=== PATIENT | female | born 1980 | race American Indian/Alaskan Native ===

== ENCOUNTER 2016-10-16 23:47 | Emergency (ER) | payer MEDICAID ==
[2016-10-16 23:47] VITALS: BMI 28.3
[2016-10-16 23:53] VITALS: BP 160/103; PULSE 77; RESP 20; TEMP 98.2; O2SAT 99
--- NOTE | 2016-10-17 00:03 | ED PDOC ---
Lower Extremity Pain/Injury Time Seen by Provider: 10/17/16 00:02 Chief Complaint (Nursing): Lower Extremity Problem/Injury Chief Complaint (Provider): ANKLE PAIN History Per: Patient (35 Y/O FEMALE HERE WITH RIGHT ANKLE PAIN NOTED WHILE AT WORK TODAY AT 8:30PM. 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 DENIES ANY FALLS/ INJURY. WAS SEEN BY URGENT CARE FACILITY AND HAD ICE FREEZE PLACED. NOTE PERSISTENT PAIN. NO XRY EVALUATION DONE AT URGENT CARE.) Past Medical History Reviewed: Historical Data, Nursing Documentation, Vital Signs Vital Signs: Last Vital Signs Temp 98.2 F 10/16/16 23:49 Pulse 77 10/16/16 23:49 Resp 20 10/16/16 23:49 BP 160/103 H 10/16/16 23:49 Pulse Ox 99 10/16/16 23:49 - Medical History PMH: HTN - Surgical History Surgical History: Cholecystectomy, - Family History Family History: States: Unknown Family Hx, Diabetes, Hypertension - Home Medications Home Medications: Ambulatory Orders Medication Instructions Recorded Acetaminophen with Codeine 1 tab PO Q6H PRN #10 tab 05/19/15 [Tylenol with Codeine No. 3 300 mg-30 mg] Labetalol [Trandate] 2 tab PO BID 05/19/15 Vit#96/Ferrous Fum/FA 1 tab PO DAILY 05/19/15 [] Ibuprofen [Motrin] 600 mg PO Q8 PRN #21 tab 10/17/16 - Allergies Allergies/Adverse Reactions: Allergies Allergy/AdvReac Type Severity Reaction Status Date / Time No Known Allergies Allergy Unverified 11/22/13 17:39 Review of Systems ROS Statement: Except As Marked, All Systems Reviewed And Found Negative Physical Exam - Reviewed Nursing Documentation Reviewed: Yes Vital Signs Reviewed: Yes - Physical Exam Appears: Positive for: Well, Non-toxic, No Acute Distress Head Exam: Positive for: ATRAUMATIC, NORMAL INSPECTION, NORMOCEPHALIC Skin: Positive for: Normal Color, Warm, DRY Eye Exam: Positive for: EOMI, Normal appearance, PERRL ENT: Positive for: Normal ENT Inspection Neck: Positive for: Normal, Painless ROM Cardiovascular/Chest: Positive for: Regular Rate, Rhythm Respiratory: Positive for: CNT, Normal Breath Sounds Gastrointestinal/Abdominal: Positive for: Normal Exam, Bowel Sounds, Soft Back: Positive for: Normal Inspection Extremity: Positive for: Normal ROM Neurologic/Psych: Positive for: Alert, Oriented - ECG O2 Sat by Pulse Oximetry: 99 - Progress ED Course And Treament: ANKLE XRY: NO ACUTE FX PLACED IN AIR CAST AND GIVEN CRUTCHES ACETAMINOPHEN 975MG Disposition - Clinical Impression Clinical Impression: Ankle pain - Patient ED Disposition Is Patient to be Admitted: No - Disposition Referrals: Podiatry Clinic [Outside] Disposition: Routine/Home Disposition Time: 00:29 Condition: FAIR Prescriptions: Ibuprofen [Motrin] 600 mg PO Q8 PRN #21 tab PRN Reason: Pain, Moderate (4-7) Instructions: Ankle Sprain (ED) Forms: [facility] ED School/Work Excuse
--- NOTE | 2016-10-17 11:24 | RAD ---
PROCEDURE: Right Ankle Radiographs. HISTORY: ANKLE PAIN COMPARISON: None FINDINGS: BONES: Normal. No fracture. JOINTS: Minor degenerative changes seen along the medial aspect of the right tibiotalar articulation. . Ankle mortise maintained. Talar dome intact SOFT TISSUES: Normal. OTHER FINDINGS: None. IMPRESSION: No evidence of acute displaced fracture nor dislocation. If symptoms persist or occult fracture suspected clinically recommend repeat radiographs in 5-10 days as most fractures should become radiographically evident in this timeframe. Minor DJD as described
== END 2016-10-17 01:21 | disposition home or self-care (01) ==
LOC: H.ER 23:47
DX: M25.571 Pain in right ankle and joints of right foot (principal)

== ENCOUNTER 2017-09-02 16:16 | Emergency (ER) | payer MEDICAID, OTHER ==
[2017-09-02 16:17] VITALS: BMI 28.3
--- NOTE | 2017-09-02 17:02 | ED PDOC ---
HPI: Female Pain Time Seen by Provider: 09/02/17 16:48 Chief Complaint (Nursing): Abdominal Pain Chief Complaint (Provider): with abd pain History Per: Patient Additional Complaint(s): 36-year-old female approximately 9 weeks presents to emergency department with cramping abdominal pain that started earlier today. Patient denies vaginal bleeding or dysuria. Patient's last menses was July 05. She denies any fever or chills. Patient has had mild nausea with no vomiting. OB: Aj Acosta Past Medical History Reviewed: Historical Data, Nursing Documentation, Vital Signs Vital Signs: Last Vital Signs Temp 98.7 F 09/02/17 16:38 Pulse 77 09/02/17 16:38 Resp 16 09/02/17 16:38 BP 133/81 09/02/17 16:38 Pulse Ox 98 09/02/17 16:38 - Medical History PMH: HTN - Surgical History Surgical History: Cholecystectomy, Other surgeries: gastric sleeve - Family History Family History: States: Unknown Family Hx, Diabetes, Hypertension - Living Arrangements Living Arrangements: With Family - Social History Current smoker - smoking cessation education provided: No Ex-Smoker (has not smoked in the last 12 months): Yes (quit when she found out she was ) Alcohol: None Drugs: Denies - Home Medications Home Medications: Ambulatory Orders Medication Instructions Recorded Acetaminophen with Codeine 1 tab PO Q6H PRN #10 tab 05/19/15 [Tylenol with Codeine No. 3 300 mg-30 mg] Labetalol [Trandate] 2 tab PO BID 05/19/15 Vit#96/Ferrous Fum/FA 1 tab PO DAILY 05/19/15 [] Ibuprofen [Motrin] 600 mg PO Q8 PRN #21 tab 10/17/16 - Allergies Allergies/Adverse Reactions: Allergies Allergy/AdvReac Type Severity Reaction Status Date / Time No Known Allergies Allergy Verified 09/02/17 16:38 Review of Systems ROS Statement: Except As Marked, All Systems Reviewed And Found Negative Constitutional: Negative for: Fever, Chills, Weakness Cardiovascular: Negative for: Chest Pain Respiratory: Negative for: Cough Gastrointestinal: Positive for: Nausea, Abdominal Pain. Negative for: Vomiting , Diarrhea Genitourinary Female: Negative for: Dysuria, Frequency, Incontinence, Hematuria , Vaginal Discharge, Vaginal Bleeding Physical Exam - Reviewed Nursing Documentation Reviewed: Yes Vital Signs Reviewed: Yes - Physical Exam Appears: Positive for: Well, Non-toxic, No Acute Distress Skin: Positive for: Normal Color. Negative for: Rash Eye Exam: Positive for: Normal appearance Cardiovascular/Chest: Positive for: Regular Rate, Rhythm Respiratory: Positive for: Normal Breath Sounds Gastrointestinal/Abdominal: Positive for: Soft. Negative for: Tenderness, Distended, Guarding, Rebound Back: Negative for: L CVA Tenderness, R CVA Tenderness Extremity: Positive for: Normal ROM Neurologic/Psych: Positive for: Alert, Oriented - Laboratory Results Result Diagrams: 09/02/17 18:53 09/02/17 18:53 Urine POC: Positive Urine dip results: Negative for: Leukocyte Esterase, Blood, Nitrate, Ketones, Glucose, Bilirubin, Protein - ECG O2 Sat by Pulse Oximetry: 98 Pulse Ox Interpretation: Normal Medical Decision Making Medical Decision Makin36 year old female with abd pain Plan: Urine dip CBC CMP Beta TV OB US IVF IV zofran Disposition - Clinical Impression Clinical Impression: Abdominal pain during - Patient ED Disposition Is Patient to be Admitted: Transfer of Care - Disposition Disposition: Transfer of Care Disposition Time: 20:05 Condition: STABLE Forms: [employer] (Gabonese) Patient Signed Over To: Ursula Fang Handoff Comments: Signed out pending ultrasound report and final disposition Results - Lab Results Lab Results: 09/02/17 09/02/17 18:53 18:53 WBC 12.0 H RBC 3.87 Hgb 11.2 L Hct 33.9 L MCV 87.8 MCH 29.1 MCHC 33.1 RDW 18.6 H Plt Count 299 MPV 8.4 Neut % (Auto) 64.0 Lymph % (Auto) 27.3 [place] % (Auto) 6.8 Eos % (Auto) 1.1 Baso % (Auto) 0.8 Neut # (Auto) 7.7 H Lymph # (Auto) 3.3 [place] # (Auto) 0.8 Eos # (Auto) 0.1 Baso # (Auto) 0.1 Sodium 136 Potassium 4.5 Chloride 103 Carbon Dioxide 23 Anion Gap 15 BUN 17 Creatinine 0.7 Est GFR ( Amer) > 60 Est GFR (Non-Af Amer) > 60 Random Glucose 79 Calcium 8.8 Total Bilirubin 0.6 AST 20 ALT 27 Alkaline Phosphatase 56 Total Protein 7.2 Albumin 3.6 Globulin 3.6 Albumin/Globulin Ratio 1.0 Beta HCG, Quant 915802.00
[2017-09-02] MEDS ORDERED: Sodium Chloride 0.9% 1,000 ML IV STA (18:00)
[2017-09-02 19:05] LABS: BASO # 0.1 K/uL (0.0-0.2); BASO % 0.8 % (0.0-2.0); EOS # 0.1 K/uL (0.0-0.7); EOS % 1.1 % (0.0-4.0); HEMOGLOBIN 11.2 g/dL (12.0-16.0); LYMPH # 3.3 K/uL (1.0-4.3); LYMPH % 27.3 % (20.0-40.0); MEAN CELL VOLUME 87.8 fl (81.0-99.0); MEAN CORPUSCULAR HEMOGLOBIN 29.1 pg (27.0-31.0); MEAN CORPUSCULAR HGB CONC 33.1 g/dL (33.0-37.0); MEAN PLATELET VOLUME 8.4 fl (7.2-11.7); MONO # 0.8 K/uL (0.0-0.8); MONO % 6.8 % (0.0-10.0); NEUT # 7.7 K/uL (1.8-7.0); RBC 3.87 Mil/uL (3.80-5.20); RED CELL DISTRIBUTION WIDTH 18.6 % (11.5-14.5)
[2017-09-02 19:11] LABS: ALBUMIN 3.6 g/dL (3.5-5.0); ALT/SGPT 27 U/L (9-52); AST/SGOT 20 U/L (14-36); BLOOD UREA NITROGEN 17 mg/dl (7-17); CALCIUM 8.8 mg/dL (8.4-10.2); GFR AFRICAN-AMERICAN > 60; GFR NON-AFRICAN AMERICAN > 60
--- NOTE | 2017-09-02 20:42 | US ---
EXAM: US , Transvaginal CLINICAL HISTORY: 36 years old, female; Pain; complicated by abdominal or pelvic pain; Lower; First trimester; Gestational age or lmp: 07/05/2017; ; Additional info: with abd pain TECHNIQUE: Real-time transvaginal obstetrical ultrasound of the maternal pelvis and a first trimester with image documentation. Transvaginal imaging was used for better evaluation of the fetus and adnexa. COMPARISON: US - OB TRANSVAGINAL 2015-05-19 16:09 FINDINGS: Gestation: Single live intrauterine . Estimated gestational age based on crown-rump length is 8 weeks 6 days. Heart rate measured at 163 bpm. Uterus/cervix: No acute abnormality as visualized. No myometrial mass. Ovaries: Bilateral Doppler flow. No acute abnormality as visualized. Free fluid: Free fluid. IMPRESSION: Single live intrauterine . Estimated gestational age based on crown-rump length is 8 weeks 6 days. Heart rate measured at 163 bpm. Free fluid.
--- NOTE | 2017-09-02 20:59 | ED PDOC ---
- Laboratory Results Result Diagrams: 09/02/17 18:53 09/02/17 18:53 Urine POC: Positive - ECG O2 Sat by Pulse Oximetry: 98 - Progress ED Course And Treament: US IMPRESSION: Single live intrauterine . Estimated gestational age based on crown- rump length is 8 weeks 6 days. Heart rate measured at 163 bpm. Free fluid. Thank you for allowing us to participate in the care of your patient. Dictated and Authenticated by: Sho Roberts MD Disposition - Clinical Impression Clinical Impression: Abdominal pain during - POA Present On Arrival: None - Disposition Disposition: Routine/Home Disposition Time: 20:58 Condition: STABLE Prescriptions: Nitrofurantoin Macrocrystals [Macrobid] 100 mg PO BID #14 cap Ondansetron ODT [Zofran ODT] 4 mg PO Q8 PRN #10 odt PRN Reason: Nausea/Vomiting Instructions: Urinary Tract Infections in Adults, Threatened Miscarriage (DC) Forms: [facility] (Ukrainian)
[2017-09-02 21:09] VITALS: BP 152/99; PULSE 63; RESP 18; TEMP 99; O2SAT 100
== END 2017-09-02 21:10 | disposition home or self-care (01) ==
LOC: H.ER 16:16
DX: O23.40 Unspecified infection of urinary tract in pregnancy, unspecified trimester (principal); O20.0 Threatened abortion; O16.1 Unspecified maternal hypertension, first trimester; Z3A.09 9 weeks gestation of pregnancy
CPT/HCPCS: 76817; 80053; 81025; 84702; 85025; 87086; 96374; 99285; J2405; J7040

== ENCOUNTER 2017-10-28 17:32 | Emergency (ER) | payer OTHER ==
[2017-10-28 17:33] VITALS: BMI 28.3
[2017-10-28 18:38] VITALS: BP 129/79; PULSE 83; RESP 20; TEMP 98; O2SAT 98
--- NOTE | 2017-10-28 21:21 | ED PDOC ---
HPI: Abdomen Time Seen by Provider: 10/28/17 19:21 Chief Complaint (Nursing): Abdominal Pain Chief Complaint (Provider): Abdominal Pain History Per: Patient History/Exam Limitations: no limitations Onset/Duration Of Symptoms: Days (x3) Current Symptoms Are (Timing): Still Present Additional Complaint(s): 36 year old female, currently 17 weeks , presents to the emergency department with a complaint of constant, non-radiating lower abdominal pain and left lower leg cramping ongoing for 2 days. She denies any vomiting, diarrhea, chest pain, shortness of breath or leg swelling. A2. [employer] WORK[employer]: [employer] [facility] [employer] Past Medical History Reviewed: Historical Data, Nursing Documentation, Vital Signs Vital Signs: Last Vital Signs Temp 98 F 10/28/17 18:36 Pulse 83 10/28/17 18:36 Resp 20 10/28/17 18:36 BP 129/79 10/28/17 18:36 Pulse Ox 98 10/28/17 22:21 - Medical History PMH: HTN - Surgical History Surgical History: Cholecystectomy, - Family History Family History: States: Unknown Family Hx, Diabetes, Hypertension - Home Medications Home Medications: Ambulatory Orders Medication Instructions Recorded Acetaminophen with Codeine 1 tab PO Q6H PRN #10 tab 05/19/15 [Tylenol with Codeine No. 3 300 mg-30 mg] Labetalol [Trandate] 2 tab PO BID 05/19/15 Vit#96/Ferrous Fum/FA 1 tab PO DAILY 05/19/15 [] Ibuprofen [Motrin] 600 mg PO Q8 PRN #21 tab 10/17/16 Nitrofurantoin Macrocrystals 100 mg PO BID #14 cap 09/02/17 [Macrobid] Ondansetron ODT [Zofran ODT] 4 mg PO Q8 PRN #10 odt 09/02/17 - Allergies Allergies/Adverse Reactions: Allergies Allergy/AdvReac Type Severity Reaction Status Date / Time No Known Allergies Allergy Verified 09/02/17 16:38 Review of Systems ROS Statement: Except As Marked, All Systems Reviewed And Found Negative Cardiovascular: Negative for: Chest Pain Respiratory: Negative for: Shortness of Breath Gastrointestinal: Positive for: Abdominal Pain (lower). Negative for: Vomiting , Diarrhea Musculoskeletal: Positive for: Leg Pain (lower left). Negative for: Other (leg swelling bilaterally) Physical Exam - Reviewed Nursing Documentation Reviewed: Yes Vital Signs Reviewed: Yes - Physical Exam Appears: Positive for: No Acute Distress Head Exam: Positive for: ATRAUMATIC, NORMAL INSPECTION, NORMOCEPHALIC Skin: Positive for: Normal Color Eye Exam: Positive for: Normal appearance ENT: Positive for: Normal ENT Inspection Neck: Positive for: Normal Cardiovascular/Chest: Positive for: Regular Rate, Rhythm. Negative for: Murmur Respiratory: Positive for: Normal Breath Sounds. Negative for: Respiratory Distress Gastrointestinal/Abdominal: Positive for: Normal Exam, Soft, Other (gravid). Negative for: Tenderness Back: Positive for: Normal Inspection. Negative for: L CVA Tenderness, R CVA Tenderness Extremity: Positive for: Calf Tenderness (left mildly on palpation). Negative for: Pedal Edema (bilaterally) Neurologic/Psych: Positive for: Alert, Oriented. Negative for: Motor/Sensory Deficits - ECG O2 Sat by Pulse Oximetry: 98 (RA) Pulse Ox Interpretation: Normal Medical Decision Making Medical Decision Making: Initial Impression: Left lower leg pain; Lower abdominal pain; 17 weeks Initial Plan: * Urine dipstick * US duplex LE (left) * US OB --------- Time: 2212 --US LE (left) FINDINGS: Deep veins: Unremarkable. No DVT in the visualized common femoral, femoral, proximal deep femoral or popliteal veins. The veins demonstrate normal color flow, are normally compressible, with normal phasic flow and/or augmentation response. Superficial veins: Unremarkable. No thrombus in the visualized great saphenous vein. Soft tissues: No acute findings. No popliteal cyst. Other findings: None IMPRESSION: Negative for DVT --------- Time: 2217 --US OB preg FINDINGS: Cervix: The cervix measures 5.3 cm the cervical os is closed. A single fetus is seen in vertex presentation. The placenta is fundal and posterior. heart rate is 148 bpm. The amniotic fluid is normal in volume. The exam is negative for anatomic deformity. measurements: BPD 3.7 cm 17 weeks 2 days HC 14.3 cm 17 weeks 4 days A.C. 10.9 cm 16 weeks 5 days FL. 2.5 cm 17 weeks 6 days Ultrasound gestational age 17 weeks 3 days IRENE 04/04/2018 Clinical gestational age of 16 weeks 3 days IRENE 04/11/2018 IMPRESSION: 1. Single living intrauterine . 2. Gestational age 17 weeks 3 days IRENE 04/04/2018 3. Exam is otherwise unremarkable Scribe Attestation: Documented by Caitlin Rich, acting as a scribe for Denton Logan MD. Provider Scribe Attestation: All medical record entries made by the Scribe were at my direction and personally dictated by me. I have reviewed the chart and agree that the record accurately reflects my personal performance of the history, physical exam, medical decision making, and the department course for this patient. I have also personally directed, reviewed, and agree with the discharge instructions and disposition. Disposition - Clinical Impression Clinical Impression: Abdominal pain during , Leg cramps - Patient ED Disposition Is Patient to be Admitted: No Doctor Will See Patient In The: Office Counseled Patient/Family Regarding: Studies Performed, Diagnosis, Need For Followup - Disposition Referrals: [facility] [Outside] Disposition: Routine/Home Disposition Time: 22:27 Condition: GOOD Additional Instructions: Follow up with your PCP in 4-5 days. Instructions: Acute Pelvic Pain (DC), Muscle Spasms (DC)
--- NOTE | 2017-10-29 11:27 | US ---
PROCEDURE: OB Pelvic Ultrasound HISTORY: lower abd pain LMP: 07/05/2017 COMPARISON: No relevant prior imaging. FINDINGS: UTERUS: Placenta: Posterior. Presentation: Cephalic. BPD: 3.7 cm compatible with estimated gestational age of 17 weeks, 2 days. HC: 14.4 cm compatible with estimated gestational age of 17 weeks, 4 days. HC: 10.9 cm compatible with estimated gestational age of 16 weeks, 5 days. FL: 2.6 cm compatible with estimated gestational age of 17 weeks, 6 days. Heart rate: 148 bpm. age (Ultrasound estimated): 17 weeks, 3 days Jannet-gestational hemorrhage: None. Date of delivery (Ultrasound estimated) : 04/04/2018 CERVIX: Measures 5.4 cm. Long and closed. No cervical abnormality seen. FREE FLUID: None. OTHER FINDINGS: None. IMPRESSION: Single live intrauterine with average ultrasound age of 17 weeks, 3 days. heart rate 148 beats per minute. Cervix long and closed.
--- NOTE | 2017-10-29 11:29 | US ---
PROCEDURE: Left lower extremity venous duplex Doppler. HISTORY: left leg pain COMPARISON: None available. TECHNIQUE: Common femoral, superficial femoral, popliteal and posterior tibial veins were evaluated. Flow was assessed with color Doppler, compressibility, assessment of phasic flow and augmentation response. FINDINGS: COMMON FEMORAL VEIN: Unremarkable. SUPERFICIAL FEMORAL VEIN: Unremarkable. POPLITEAL VEIN: Unremarkable. POSTERIOR TIBIAL VEIN: Unremarkable. OTHER FINDINGS: None. IMPRESSION: No evidence of deep venous thrombosis in the left ower extremity.
== END 2017-10-28 22:41 | disposition home or self-care (01) ==
LOC: H.ER 17:32
DX: O26.892 Other specified pregnancy related conditions, second trimester (principal); O16.2 Unspecified maternal hypertension, second trimester; Z3A.17 17 weeks gestation of pregnancy; R25.2 Cramp and spasm

== ENCOUNTER 2018-03-24 13:17 | Inpatient (IN) | payer MEDICAID, OTHER ==
[2018-03-24 13:46] VITALS: BMI 29.0
[2018-03-24 16:05] LABS: SQUAMOUS EPITHIAL 6 /hpf (0-5); URINE BACTERIA RARE (<OCC); URINE BILIRUBIN NEGATIVE (NEGATIVE); URINE BLOOD NEGATIVE (NEGATIVE); URINE CLARITY CLOUDY (Clear); URINE COLOR YELLOW (YELLOW); URINE GLUCOSE (UA) NEG (Normal); URINE LEUKOCYTE ESTERASE SMALL Leu/uL (Negative); URINE PROTEIN NEGATIVE (NEGATIVE)
[2018-03-24 16:07] LABS: BASO # 0.1 K/uL (0.0-0.2); BASO % 0.6 % (0.0-2.0); EOS % 0.1 % (0.0-4.0); HEMOGLOBIN 10.4 g/dL (12.0-16.0); LYMPH # 2.2 K/uL (1.0-4.3); LYMPH % 22.6 % (20.0-40.0); MEAN CELL VOLUME 94.3 fl (81.0-99.0); MEAN CORPUSCULAR HGB CONC 33.9 g/dL (33.0-37.0); MEAN PLATELET VOLUME 9.7 fl (7.2-11.7); MONO # 0.5 K/uL (0.0-0.8); MONO % 5.4 % (0.0-10.0); NEUT # 6.8 K/uL (1.8-7.0); NEUT % 71.3 % (50.0-75.0); NRBC % 0.1 % (0.0-0.0); RBC 3.23 Mil/uL (3.80-5.20); RED CELL DISTRIBUTION WIDTH 13.1 % (11.5-14.5); WHITE BLOOD COUNT 9.6 K/uL (4.8-10.8)
[2018-03-24 16:13] LABS: ALB/GLOB RATIO 0.8 (1.0-2.1); ALBUMIN 3.2 g/dL (3.5-5.0); ALT/SGPT 18 U/L (9-52); AST/SGOT 18 U/L (14-36); BLOOD UREA NITROGEN 12 mg/dl (7-17); CALCIUM 8.7 mg/dL (8.4-10.2); GFR NON-AFRICAN AMERICAN > 60; URIC ACID 5.1 mg/Dl (2.2-7.5)
[2018-03-24] MEDS ORDERED: Lactated Ringer's 1,000 ML IV ONE (16:55)
[2018-03-24] MEDS ORDERED: Labetalol 5 mg/ml Inj 20ML IVP ONE (18:38)
--- NOTE | 2018-03-25 09:40 | OBADHP ---
Datetime: 03/24/2018 14:08 Admit Comment, IP Provider: 37 y/o @ 37.3wks w/IRENE of 04/11/2018 based on LMP of 07/05/2017 s ent from PND office, Dr. Pollard @ [facility], due to elevated BP"s of 181/98 _ 171/104. She endorses taking labetolol 200mg QD for elevated BP. She reports + FM, denies vb, ctx, loss of fluid, f/c, hea daches, visual changes, shortness of breath or chest pain. PNP: Dr. Pollard [facility] OBGYNhx: x 1 (2008) PMH: chronic HTN Meds: labetolol 200mg PO QD, PNV Allergies: NKA Surgx: [id number] Famhx: mom-HTN Sochx: quit cigarette smoking when she found out she was ROS: all points reviewed and neg unless otherwise mentioned in HPI VS: 131/92, 82 bpm, RR-16 spo2-100% Cardio: s1s2, RRR Lungs: cta b/l Abd: Gravid, BS+, nontender Ext: nonedematous, calves nontender A/P: 37 y/o @ 37.3wks w/IRENE of 04/11/2018 _ hx of chronic HTN, currently stable, not in ac tive labor, was sent due to elevated BP in office of 181/98 _ 171/104. -Further evaluation underway to R/O superimposed pre-eclampsia on chronic HTN given patient's elev ated BP in office. BP monitoring every 15 minutes with continous monitoring. -Ordered cbc, cmp, ldh, uric acid, 24hour urine. -FU labs and if wnl, patient can be discharged home and return 24hr urine to lab. Patient seen and evaluated with Dr. Granger -Maribel Fish, PGY-1 Extremities - PN: Normal Abdomen - PN: Normal Lungs - PN: Normal Heart - PN: Normal General - PN: Normal Gestation - Est Wks by US: 37.0 IP Hx Assessment: The History has been Reviewed and is Current Vital Signs Provider: Reviewed IP Chief Complaint: Other NICHD Variability Prov Fetus A: Moderate 6-25bpm NICHD Accel Fetus A IP Provider: [id number] FHR Category Provider Fetus A: Category I NICHD Decel Fetus A IP Provider: None DTRs - PN: Normal EGA AdmitDate IP: 37.3 IP Adm Impression: Term, intrauterine IP Admit Plan: Observation/Evaluation
[2018-03-25] MEDS ORDERED: Lactated Ringer's 1,000 ML IV SCH ×2 (15:30→20:45)
[2018-03-25] MEDS ORDERED: Labetalol 5mg/ml (4ml) IVP STA (17:51)
[2018-03-25] MEDS ORDERED: Labetalol 5mg/ml (4ml) ONE (17:54)
[2018-03-25] MEDS ORDERED: Lactated Ringer's 1,000 ML IV ONE (17:56)
[2018-03-25] MEDS ORDERED: Oxytocin 30 UNIT 30 UNITS/500 ML BAG IV ONE (17:58)
[2018-03-25] MEDS ORDERED: Morphine 5 mg/10 ml preservative-free Inj(Duramorph) ONE (17:59)
[2018-03-25] MEDS ORDERED: OXYTOCIN/0.9 % NS 20 UNIT/1,000 ML BAG IV SCH (18:00)
[2018-03-25] MEDS ORDERED: ceFAZolin IV 2 gm in Dextrose 2 GM/50 ML BAG IVPB ONE (18:04)
[2018-03-25] MEDS: Lactated Ringer's 1,000 ML IV ONE ×2 (18:10→19:00)
[2018-03-25] MEDS ORDERED: ceFAZolin IV 2 gm in Dextrose 2 GM/50 ML BAG IVPB SCH (18:15)
[2018-03-25 18:32] LABS: BASO % 0.5 % (0.0-2.0); EOS # 0.1 K/uL (0.0-0.7); EOS % 0.8 % (0.0-4.0); HEMOGLOBIN 9.5 g/dL (12.0-16.0); LYMPH # 2.2 K/uL (1.0-4.3); LYMPH % 28.1 % (20.0-40.0); MEAN CELL VOLUME 94.9 fl (81.0-99.0); MEAN CORPUSCULAR HEMOGLOBIN 31.7 pg (27.0-31.0); MEAN CORPUSCULAR HGB CONC 33.4 g/dL (33.0-37.0); MEAN PLATELET VOLUME 9.6 fl (7.2-11.7); MONO # 0.7 K/uL (0.0-0.8); MONO % 8.8 % (0.0-10.0); NEUT # 4.8 K/uL (1.8-7.0); NEUT % 61.8 % (50.0-75.0); NRBC % 0.1 % (0.0-0.0); RBC 3.01 Mil/uL (3.80-5.20); RED CELL DISTRIBUTION WIDTH 13.3 % (11.5-14.5); WHITE BLOOD COUNT 7.8 K/uL (4.8-10.8)
[2018-03-25] MEDS ORDERED: Oxycodone/Acetaminophen 5/325 mg Tab PO PRN ×2 (20:43)
[2018-03-25] MEDS ORDERED: Simethicone 80 mg Chewtab PO SCH (22:00)
[2018-03-25] MEDS ORDERED: Labetalol 5mg/ml (4ml) IVP ONE (22:49)
[2018-03-26] MEDS: Lactated Ringer's 1,000 ML IV SCH ×2 (03:58→17:08)
[2018-03-26 07:53] LABS: HEMOGLOBIN 9.6 g/dL (12.0-16.0); MEAN CORPUSCULAR HEMOGLOBIN 31.4 pg (27.0-31.0); MEAN CORPUSCULAR HGB CONC 33.4 g/dL (33.0-37.0); RBC 3.06 Mil/uL (3.80-5.20); RED CELL DISTRIBUTION WIDTH 13.2 % (11.5-14.5); WHITE BLOOD COUNT 12.3 K/uL (4.8-10.8)
[2018-03-26] MEDS ORDERED: Multivitamin With Minerals Tab PO SCH (09:00)
[2018-03-26] MEDS: Simethicone 80 mg Chewtab PO SCH ×2 (17:11→21:19)
[2018-03-26] MEDS: Oxycodone/Acetaminophen 5/325 mg Tab PO PRN (22:28)
[2018-03-27] MEDS: Simethicone 80 mg Chewtab PO SCH ×4 (05:22→22:01)
[2018-03-27] MEDS: Oxycodone/Acetaminophen 5/325 mg Tab PO PRN ×3 (08:05→22:23)
[2018-03-27] MEDS ORDERED: Prenatal Multivit/Folic Acid/Iron Tab PO SCH (09:00)
--- NOTE | 2018-03-27 10:07 | OBPPN ---
Datetime: 03/27/2018 08:41 PP Pain Prov: Within normal limits PP Nausea Prov: Denies PP Flatus Prov: Yes PP BM Prov: Yes PP Breasts Prov: Not Done PP Heart Prov: Normal PP Lungs Prov: Normal PP Abdomen/Uterus Prov: Abnormal PP Lochia Prov: Normal PP Vulva/Perineum Prov: Not Done PP CVA Tenderness Prov: Normal PP Extremities Prov: Normal PP C/S Incision Prov: Normal PP Progress Prov: Normal PP Impression Prov: Induced Hypertension PP Plan Prov: Continue present management PP Impression Other Prov: Chronic HTN With preeclampsia PP Progress Note Prov: POD2 S: 37yo admitted for chronic HTN + Preeclampsia s/p C section on 03/25/18 @ 20:00. Patient seen and examined at bedside. Pt reports mild pelvic pains improved with pain medication. Bottle fee ding without difficulty. Appeitite improved, eating regular diet w/o nausea, vomiting. Passing flatus and small BM. Ambulating well w/o difficulties. Rea removed. Denies fever/chills, headache, CP/SOB , dizziness, extremity swelling or calf pain. O: BP 152/86 @ 4:21am PE GEN: Sitting comfortably in bed, NAD HEENT: NCAT LUNGS: CTA, no wheezing, rhonchi, or rales CVS: RRR, S1, S2, no m/r/g ABD: Nondistended, Mild tenderness along incision line, +BS, firm fundus @ umbilical level. Dressi ng wet/intact w/o any discharge or pus. + sweat in the area. EXT: No calf tenderness, pedal edema A/P: 37yo s/p C section on 03/25/18 @ 20:00. Doing well POD2 - Labetalol 200mg BID for BP control consider MG if BP isnt controlled - Encouraged pt wants to bottle feed - Continue regular diet - OOB with caution if MG not started - Continue vitamin - Percocet 5/325 mg 1-2 tablets po q 6 hrs if severe pain - Simethicone 80mg Q6h PRN for gas - Colace 100mg BID PO - Clean area/apply new steri-strips - Discharge to home today 03/28/18 F/U in 1 week for and wound check appt and 4-6 weeks post- appt at [facility] Case reviewed and discussed with Attending Alec Fang, PGY1 Vital Signs Provider PP: Reviewed Vital Signs Provider Details PP: BP 152/86 Datetime: 03/26/2018 07:05 PP Comments Phys Exam Prov: Wearing SCDS IP PP Procedures: Tubal Ligation
--- NOTE | 2018-03-27 13:03 | OBPPN ---
Datetime: 03/27/2018 08:41 PP Progress Note Prov: POD2 S: 37yo admitted for chronic HTN + Preeclampsia s/p C section on 03/25/18 @ 20:00. Patient seen and examined at bedside. Pt reports mild pelvic pains improved with pain medication. Bottle fee ding without difficulty. Appeitite improved, eating regular diet w/o nausea, vomiting. Passing flatus and small BM. Ambulating well w/o difficulties. Rea removed. Denies fever/chills, headache, CP/SOB , dizziness, extremity swelling or calf pain. O: BP 152/86 @ 4:21am PE GEN: Sitting comfortably in bed, NAD HEENT: NCAT LUNGS: CTA, no wheezing, rhonchi, or rales CVS: RRR, S1, S2, no m/r/g ABD: Nondistended, Mild tenderness along incision line, +BS, firm fundus @ umbilical level. Dressi ng wet/intact w/o any discharge or pus. + sweat in the area. EXT: No calf tenderness, pedal edema A/P: 37yo s/p C section on 03/25/18 @ 20:00. Doing well POD2 - Labetalol 200mg BID for BP control consider MG if BP isnt controlled - Encouraged pt wants to bottle feed - Continue regular diet - OOB with caution if MG not started - Continue vitamin - Percocet 5/325 mg 1-2 tablets po q 6 hrs if severe pain - Simethicone 80mg Q6h PRN for gas - Colace 100mg BID PO - Clean area/apply new steri-strips - Discharge to home today 03/28/18 F/U in 1 week for and wound check appt and 4-6 weeks post- appt at [facility] Case reviewed and discussed with Attending Alec Fang, PGY1 The patient was seen with the resident I agree with the note
--- NOTE | 2018-03-27 13:03 | OBDS ---
DELIVERY PERSONNEL Delivery Doctor: Amadou Nunez MD (Annotations: Data stored by [facility] on behalf of user) Change Over: Yuri Mcfarlane RN Anesthesiologist: David Moses MD Resident: Dr. Bonilla Sandoval MATERNAL INFORMATION Delivery Anesthesia: Spinal Medications in Delivery: Pitocin Estimated Blood Loss (ml): 800 Placenta Cultured: No Maternal Complications: Other Other Maternal Complications: Chronic Hypertension Provider Comments: See operative report LABOR SUMMARY EDC: 04/11/2018 00:00 No. Babies in Womb: 1 Attempted: No Labor Anesthesia: Spinal LABOR INFORMATION Reason for Induction: Not Applicable Oxytocin: N/A Group B Beta Strep: Negative Antibiotics # of Doses: 1 Antibiotics Time of Last Dose: 1934 Steroids Given: None Reason Steroids Not Administered: Not Applicable MEMBRANES Membranes Rupture Method: Artificial Rupture of Membranes: 03/25/2018 19:59 Length of Rupture (hrs): 0.02 Amniotic Fluid Color: Clear Amniotic Fluid Amount: Moderate STAGES OF LABOR Stage 3 hrs: 0 Stage 3 min: 1 CSECTION DELIVERY Primary Indication: Other Other Primary Indication: Chronic Hypertension Secondary Indication: Repeat Elective CSection Urgency: Non Elective CSection Incidence: Repeat CSection Incision: Lower Uterine Transverse Other Sterilization Procedure: Bilateral Tubal Ligation BABY A INFORMATION Infant Delivery Date/Time: 03/25/2018 20:00 Method of Delivery: Born in Route : No : N/A Forceps: N/A Vacuum Extraction: N/A Shoulder Dystocia : No SHOULDER DYSTOCIA BABY A Infant Delivery Date/Time: 03/25/2018 20:00 PRESENTATION/POSITION BABY A Presentation: Cephalic Cephalic Presentation: Vertex Breech Presentation: N/A PLACENTA INFORMATION BABY A Placenta Delivery Time : 03/25/2018 20:01 Placenta Method of Delivery: Manual Removal Placenta Status: Delivered SCORES BABY A Heart Rate 1 min: >100 bpm Resp Effort 1 min: Good Cry Reflex Irritability 1 min: Cough or Sneeze or Pulls Away Muscle Tone 1 min: Active Motion Color 1 min: Body [place], Extremities Blue Resuscitation Effort 1 min: Tactile Stimulation SCORE 1 MIN: 9 Heart Rate 5 min: >100 bpm Resp Effort 5 min: Good Cry Reflex Irritability 5 min: Cough or Sneeze or Pulls Away Muscle Tone 5 min: Active Motion Color 5 min: Body [place], Extremities Blue Resuscitation Effort 5 min: N/A SCORE 5 MIN: 9 INFANT INFORMATION BABY A Gestational Age at Delivery: 37.4 Gestational Status: Outcome : Liveborn Infant Condition : Stable Sex: Female IDENTIFICATION/MEDS BABY A ID Band Number: [id number] ID Band Location: Left Leg; Left Arm WEIGHT/LENGTH BABY A Birthweight (gms): 2500 Infant Weight (lb): 5 Infant Weight (oz): 8 CORD INFORMATION BABY A No. Cord Vessels: 3 Nuchal Cord : N/A Cord Blood Taken: Yes Suction: Mouth; Nose ASSESSMENT BABY A Infant Complications: None Physical Findings at Delivery: Within Normal Limits Infant Respirations: Appears Normal Live Ammunition Inspector/ALS Called : No Infant Care By: Dr. Leung / Tung RN Transferred To: Remains with Mother
[2018-03-27] MEDS ORDERED: Labetalol 5mg/ml (4ml) IVP STA (17:50)
[2018-03-27] MEDS ORDERED: Lactated Ringer's 1,000 ML IV SCH (19:00)
[2018-03-28] MEDS: Simethicone 80 mg Chewtab PO SCH ×4 (07:08→22:41)
--- NOTE | 2018-03-28 07:18 | OP ---
PROCEDURE DATE: 03/25/2018 PREOPERATIVE DIAGNOSES: Intrauterine at 37+ weeks, history of previous delivery, uncontrolled hypertension. POSTOPERATIVE DIAGNOSES: Intrauterine of at 37+ weeks, history of previous delivery, uncontrolled hypertension. OPERATION PERFORMED: Repeat low flap transverse section via Pfannenstiel skin incision with bilateral tubal ligation. SURGEON: Portillo Nunez MD CLOUD ENGAGEMENT PARTNER: Dr. Joanie Aguila. ANESTHESIA TYPE: Spinal. ANESTHESIA ADMINISTERED BY: Benoit Moses MD ESTIMATED BLOOD LOSS: 800 mL. URINE OUTPUT: Rea catheter put out approximately 100 mL of clear urine. INTRAVENOUS FLUID INTAKE: The patient received 1100 mL of D5 LR intraoperatively. OPERATIVE FINDINGS: Baby girl, vertex presentation, Apgars 9 and 9, weighing 2500 g. Normal uterus, tubes, and ovaries were identified. DESCRIPTION OF PROCEDURE: After informed consent was obtained, the patient was taken to the operating room, where she was given spinal anesthesia. The patient was then prepped and draped in a normal sterile fashion with a leftward tilt. A Pfannenstiel skin incision was then made with a scalpel and carried down the underlying layer of fascia. The fascia was nicked in the midline. The fascial incision was then extended laterally with curved Molina scissors. The superior aspect of the fascial incision was then grasped with Sarah clamps, elevated up, and the rectus muscles were dissected off using both sharp and blunt dissection. Attention was then turned to the inferior aspect of the fascial incision, which in a similar fashion, was grasped with Sarah clamps, elevated up, and the rectus muscles were dissected off using both sharp and blunt dissection. The rectus muscles were then in the midline. The peritoneum was identified and entered sharply with the Metzenbaum scissors. The peritoneal incision was then extended superiorly and inferiorly with good visualization of the bladder. The bladder blade was then inserted. The vesicouterine peritoneum was identified and entered sharply with the Metzenbaum scissors. The incision was then extended laterally. A bladder flap was created digitally. The bladder blade was then re-adjusted and a low transverse incision was made with the scalpel. The incision was then extended laterally. The 's head was then delivered atraumatically. The nose and mouth were suctioned with DeLee suction trap. The cord was clamped and cut. The was handed off to awaiting pediatricians. The placenta was then removed manually. The uterus was cleared of all clots and debris. The uterine incision was then repaired with 0 Vicryl in a running locked fashion. The second layer of the same suture was used to obtain excellent hemostasis. Attention was then turned to the fallopian tubes, where the right tube was grasped with Aydee, elevated up and a knuckle of tube was created. It was suture ligated. The tube was then transected with Metzenbaum scissors. A similar procedure was performed on the left. Specimens were sent to Pathology. The abdomen was then copiously irrigated. The irrigant was removed with the suction device. The uterus was returned to the abdomen. Both tubal stumps were examined and the uterine incision was now noted to be hemostatic. The peritoneum was then closed with 2-0 Vicryl in a running fashion. The muscles were reapproximated with 0 Vicryl in an interrupted fashion and the skin was closed with 4-0 on a Philip needle. All sponge, lap, needle and instrument counts were correct x2. The patient was taken to the recovery room in awake and stable condition. Portillo Nunez MD
[2018-03-28] MEDS: Oxycodone/Acetaminophen 5/325 mg Tab PO PRN ×2 (09:54→22:41)
--- NOTE | 2018-03-28 15:11 | OBPPN ---
Datetime: 03/28/2018 08:42 PP Pain Prov: Within normal limits PP Nausea Prov: Denies PP Flatus Prov: Yes PP BM Prov: Yes PP Breasts Prov: Not Done PP Heart Prov: Normal PP Lungs Prov: Normal PP Abdomen/Uterus Prov: Normal PP Lochia Prov: Normal PP Vulva/Perineum Prov: Normal PP CVA Tenderness Prov: Normal PP Extremities Prov: Normal PP Impression Prov: Normal progression; Induced Hypertension PP Progress Note Prov: POD3 S: 37yo admitted for chronic HTN + Preeclampsia s/p C section on 03/25/18 @ 20:00. Patient seen and examined at bedside. Pt state pain is controlled with medication. She is only bottle feedin g for now.Have good appetite and eating regular food. Pt denies N/v diarrhea.nies fever/chills, heada emily, CP/SOB, dizziness, extremity swelling or calf pain. O: BP 155/90 @ 4:00am PE GEN: Sitting comfortably in bed, NAD HEENT: NCAT LUNGS: CTA, no wheezing, rhonchi, or rales CVS: RRR, S1, S2, no m/r/g ABD: Nondistended, Mild tenderness along incision line, +BS, firm fundus @ umbilical level. wound intact clean no stables noted EXT: No calf tenderness, pedal edema A/P: 37yo s/p C section on 03/25/18 @ 20:00. Doing well POD2 - Labetalol 200mg BID for BP control consider MG if BP isnt controlled - Encouraged pt wants to bottle feed - Continue regular diet - OOB with caution if MG not started - Continue vitamin - Percocet 5/325 mg 1-2 tablets po q 6 hrs if severe pain - Simethicone 80mg Q6h PRN for gas - Colace 100mg BID PO - Discharge to home today after bp is <140/90 F/u 1-2 days for visit and post visit in 4-6 wk in [facility] F/U in 1 week for and wound check appt and 4-6 weeks post- appt at [facility] Ludwin Ramires, PGY1 Alec Fang, PGY1 Addendum by Dr. Medrano: I have evaluated the patient independently and I agree with the above. Regine ent was found to have elevated BP this AM 160/111 - denies GORE, blurry vision, N/V. 2 doses of Labetal ol 100mg PO were given and after 1pm BP was 140s/80s. Will continue Labetalol 300mg PO Q8 and will re asses tomorrow for discharge Vital Signs Provider PP: Reviewed Vital Signs Provider Details PP: BP still uncontrolled 155/90 with labetalol 200mg
[2018-03-28] MEDS ORDERED: Oxycodone/Acetaminophen 5/325 mg Tab PO PRN (22:09)
[2018-03-29] MEDS: Simethicone 80 mg Chewtab PO SCH ×3 (05:07→15:58)
[2018-03-29] MEDS: Oxycodone/Acetaminophen 5/325 mg Tab PO PRN (07:56)
--- NOTE | 2018-03-29 11:54 | OBPPN ---
Datetime: 03/29/2018 05:48 PP Pain Prov: Within normal limits PP Nausea Prov: Denies PP Flatus Prov: Yes PP Heart Prov: Normal PP Lungs Prov: Normal PP Abdomen/Uterus Prov: Normal PP Lochia Prov: Normal PP Extremities Prov: Normal PP Comments Phys Exam Prov: Se progress note PP Progress Note Prov: S: 37 y/o with chronic HTN + Preeclampsia s/p C section on 03/25/18 @ 20:00, POD4. Patient seen and examined at bedside this morning. Pt c/o pelvic pain mainly when she w alks and is controlled with medication, she is only bottle feeding baby. Patient reports tolerating r egular diet without nausea or vomiting, patient reports that her lochia is less than menses in volume . Voiding well with no blood noted in urine, + flatus. Patient denies fever/chills, headache, blurry vision, abdominal pain, CP/SOB, dizziness, or calf pain. O: VS 1AM BP134/81 HR 64 RR 18. VS 4AM BP 161/86 GEN: Sitting comfortably in bed, NAD HEENT: NCAT LUNGS: CTA, no wheezing CVS: RRR, S1, S2 present normal, no murmurs. ABD: No distended, BS +, mild tenderness along incision line, firm fundus at umbilical level, woun d clean and intact EXT: Sylvain's negative A/P: 37 y/o with h/o chronic HTN and preeclampsia, s/p C section on 03/25/18 @ 20:00, today on her POD4 patient is asymptomatic but continues with elevated BP. - Regular diet - Labetalol 400mg Q8h for BP control. - Encouraged - OOB with assistance - Continue vitamin - Percocet 5/325 mg 1-2 tablets PO q 6hrs if severe pain - Simethicone 80mg Q6h PRN for gas - Colace 100mg BID PO - Discharge to home today after bp is <140/90 F/u 1-2 days for visit and visit in 4-6 wk in [facility]. F/U in 1 week for and wound check appt and 4-6 weeks post- appt at [place] Case discussed with attending Jc Vidales MD PGY1 OB Hospitalist on-call: Pt seen on rounds this morning. BPs rev'd. Cardiology consultation for B P control. MIA Vital Signs Provider PP: Reviewed Vital Signs Provider Details PP: Notable for elevated BP
[2018-03-29] MEDS ORDERED: NIFEdipine 30 mg ER Tab PO SCH (12:45)
[2018-03-29 13:38] VITALS: BP 159/89
[2018-03-30 00:10] VITALS: PULSE 75; RESP 18; TEMP 98.6; O2SAT 98
--- NOTE | 2018-03-30 02:26 | CON ---
DATE: 03/29/2018 REASON FOR CONSULTATION: Hypertension. HISTORY OF PRESENT ILLNESS: The patient is a 37-year-old female who was diagnosed of hypertension since her last in 2008, and the patient was treated with labetalol and four days ago she had a section at the obstetric floor in [facility] and was noted to be hypertensive. The patient denies any chest pain, shortness of breath or leg swelling and no known prior cardiac history. SOCIAL HISTORY: The patient is a smoker but she did not smoke during this . MEDICATIONS: Procardia XL 30 mg once a day, labetalol 400 mg p.o. every eight hours. PHYSICAL EXAMINATION: GENERAL: The patient is a middle-aged female who does not appear to be in any distress. VITAL SIGNS: Blood pressure 159/89, heart rate 89. HEENT: Normocephalic. CHEST: Clear. HEART: S1 and S2, regular. EXTREMITIES: No edema. LABORATORY DATA: EKG reveals normal sinus rhythm at the rate of 61. Echocardiographic study, I did review the study which revealed normal ejection fraction with mild pulmonary hypertension. Laboratories on 03/26/2018: Hemoglobin and hematocrit were 9.6 and 28.8, white count 12.3, platelet count 204,000. SMA 7, 03/24/2018: Sodium 136, potassium 4, chloride 109, CO2 is 22, glucose 75, BUN 12, creatinine 0.8. ASSESSMENT: 1. Uncontrolled hypertension. 2. 2, para 2. The patient is not nursing her baby at this time. RECOMMENDATIONS: Continue Trandate 400 mg p.o. every eight hours, Procardia XL at 30 mg once a day. I will administer one dose of 2 mg of IV Lasix and start hydrochlorothiazide 12.5 mg orally daily. The patient can be discharged after optimizing her blood pressure control, to be followed by the medical clinic at [facility]. Kevin Chen MD
--- NOTE | 2018-03-30 06:57 | CARD ---
APPROVED REPORT Date of service: 03/29/2018 EXAM: Two-dimensional and M-mode echocardiogram with Doppler and color Doppler. Other Information Quality : ExcellentRhythm : NSR INDICATION Hypertension/HCVD 2D DIMENSIONS IVSd1.15 (0.7-1.1cm)LVDd4.65 (3.9-5.9cm) LVOT Diameter1.83 (1.8-2.4cm)PWd1.13 (0.7-1.1cm) IVSs1.80 (0.8-1.2cm)LVDs2.59 (2.5-4.0cm) FS (%) 44.3 %PWs1.82 (0.8-1.2cm) M-Mode DIMENSIONS Left Atrium (MM)4.01 (2.5-4.0cm)IVSd1.26 (0.7-1.1cm) Aortic Root2.83 (2.2-3.7cm)LVDd4.66 (4.0-5.6cm) Aortic Cusp Exc.2.08 (1.5-2.0cm)PWd1.31 (0.7-1.1cm) IVSs1.65 cmFS (%) 41 % LVDs2.73 (2.0-3.8cm)PWs1.80 cm Aortic Valve AoV Peak Heomoiyo871.9cm/sAoV VTI33.0cmAO Peak GR.10mmHg LVOT Peak Vnpslips531.6cm/sLVOT VTI24.83cmAO Mean GR.5mmHg NASRIN (VMAX)0.22zk6UGO (VTI)1.03cm2 Mitral Valve MV E Vepamowc918.2cm/sMV DECEL [id number] A Ocjkgwxq17.6cm/s MV BTF40uaW/A ratio1.7MVA (PHT)3.27cm2 TDI Lateral E' Peak V11.90cm/sMedial E' Peak V12.71cm/sE/Lateral E'10.2 E/Medial E'9.5 Pulmonary Valve PV Peak Rlznfpvu110.5cm/s Tricuspid Valve TR Peak Uakdclnw077yx/sRAP LIWPLGWW44iyRvJO Peak Gr.25mmHg [id number] LEFT VENTRICLE The left ventricle is normal size. There is borderline concentric left ventricular hypertrophy. The left ventricular systolic function is normal. The estimated ejection fraction is 60-65% No regional wall motion abnormalities noted.. The left ventricular diastolic function is normal. No left ventricle thrombus noted on this study. There is no ventricular septal defect visualized. There is no left ventricular aneurysm. There is no mass noted in the left ventricle. RIGHT VENTRICLE The right ventricle is normal size. There is normal right ventricular wall thickness. The right ventricular systolic function is normal. ATRIA The left atrium size is normal. The right atrium size is normal. The interatrial septum is intact with no evidence for an atrial septal defect. AORTIC VALVE The aortic valve is normal in structure. No aortic regurgitation is present. There is no aortic valvular stenosis. There is no aortic valvular vegetation. MITRAL VALVE The mitral valve is normal in structure. There is no evidence of mitral valve prolapse. There is no mitral valve stenosis. There is trace mitral valve regurgitation noted. TRICUSPID VALVE The tricuspid valve is normal in structure. There is mild tricuspid valve regurgitation noted. RVSP is calculated at 30 mm Hg. There is no tricuspid valve prolapse or vegetation. There is no tricuspid valve stenosis. PULMONIC VALVE The pulmonary valve is normal in structure. There is no pulmonic valvular regurgitation. There is no pulmonic valvular stenosis. GREAT VESSELS The aortic root is normal in size. The ascending aorta is normal in size. The pulmonary artery is normal. The IVC is normal in size and collapses >50% with inspiration. PERICARDIAL EFFUSION There is no pericardial effusion. There is no pleural effusion. <Conclusion> There is borderline concentric left ventricular hypertrophy. The estimated ejection fraction is 60-65% The left ventricular diastolic function is normal. The left atrium size is normal. There is trace mitral valve regurgitation noted. There is mild tricuspid valve regurgitation noted. RVSP is calculated at 30 mm Hg.
--- NOTE | 2018-03-30 06:57 | CARD ---
APPROVED REPORT Date of service: 03/29/2018 EKG Measurement Heart [id number] ME 140P61 [id number] <Conclusion> Normal sinus rhythm Normal ECG
== END 2018-03-29 18:10 | disposition home or self-care (01) | DRG 370 ==
LOC: H.EROB2 13:17 → H.L&D 13:36 → H.EROB2 03-25 00:45 → OBSVTOIN 03-25 17:56 → H.OB/GYN 03-26 11:00
PROVIDERS: ADMIT Obstetrics & Gynecology Gynecology; ATTEND Obstetrics & Gynecology Gynecology
PROC: 10D00Z1 Extraction of Products of Conception, Low, Open Approach (ICD-10-PCS; principal; 2018-03-25)
PROC: 0UB70ZZ Excision of Bilateral Fallopian Tubes, Open Approach (ICD-10-PCS; 2018-03-25)
PROC: 4A1HXCZ Monitoring of Products of Conception, Cardiac Rate, External Approach (ICD-10-PCS; 2018-03-25)
DX: O34.211 Maternal care for low transverse scar from previous cesarean delivery (principal); O11.3 Pre-existing hypertension with pre-eclampsia, third trimester; O99.413 Diseases of the circulatory system complicating pregnancy, third trimester; O10.913 Unspecified pre-existing hypertension complicating pregnancy, third trimester; Z87.891 Personal history of nicotine dependence; Z37.0 Single live birth; Z3A.37 37 weeks gestation of pregnancy; O09.523 Supervision of elderly multigravida, third trimester; Z30.2 Encounter for sterilization